=== PATIENT | male | born 2000 | race Caucasian/White ===

== ENCOUNTER → 2020-10-11 | Outpatient (CLI) | payer SELFPAY ==
--- NOTE | 2020-10-11 16:25 | Diagnostic Imaging Report ---
INDICATION: Left foot pain. FINDINGS: Three views of the left foot show no fracture, dislocation, or other acute abnormalities. IMPRESSION: Negative left foot. Dictated by: Dictated on workstation # [id number]
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
== END ==
LOC: RAD FS 10:37
PROVIDERS: ATTEND Nurse Practitioner
DX: S92.152A Displaced avulsion fracture (chip fracture) of left talus, initial encounter for closed fracture (principal); X58.XXXA Exposure to other specified factors, initial encounter
CPT/HCPCS: 73610; 73630

== ENCOUNTER 2021-08-24 08:02 | Emergency (ER) | payer BC, OTHER ==
[2021-08-24] MEDS ORDERED: NS IV 1000 ML 1,000 ML IV STA (08:22)
[2021-08-24] MEDS ORDERED: KETOROLAC 30 MG/ML VIAL IVP STA (08:22)
--- NOTE | 2021-08-24 08:27 | ED General ---
General Stated Complaint: RT FLANK/LRQ PAIN Source of Information: Patient History of Present Illness Date Seen by Provider: Aug 24, 2021 Time Seen by Provider: 08:06 Initial Comments 20-year-old male presenting with right flank pain. He states yesterday evening he was having pain in his back around his kidney. He felt that the pain wraps around to his right lower quadrant this morning. He has had more severe pain overnight. He has had no significant improvement by taking acetaminophen and ibuprofen. He has increased pain with movement and palpation. He denies any nausea or vomiting. He denies any fever or chills. He has had no prior abdominal surgeries. He denies having pain like this in the past. He has had darker color to his urine. He denies any pain or burning with urination. He denies any history of kidney stones. Timing/Duration: 12-24 Hours Severity: Severe Modifying Factors: worse with Movement (and palpation) Associated Systoms: No Chest Pain, No Cough, No Diaphoresis, No Fever/Chills, No Headaches, No Loss of Appetite, No Malaise, No Nausea/Vomiting, No Rash, No Seizure, No Shortness of Air, No Syncope, No Weakness Allergies and Home Medications Allergies Coded Allergies: No Known Drug Allergies (Unverified , 08/24/21) Patient Home Medication List Home Medication List Reviewed: Yes Review of Systems Review of Systems Constitutional: No chills, No fever EENTM: no symptoms reported Respiratory: no symptoms reported Cardiovascular: no symptoms reported Gastrointestinal: see HPI Genitourinary: see HPI; No dysuria; other (darker color) Musculoskeletal: see HPI Skin: no symptoms reported Psychiatric/Neurological: No Symptoms Reported Past Ppxgimp-Wnzogr-Fefhuo Hx Past Medical History Surgery/Hospitalization HX: GERD, Kidney stones Surgeries: No Genitourinary: Yes Kidney Stones Gastrointestinal: Yes Gastroesophageal Reflux Physical Exam Vital Signs Vital Signs - First Documented 08/24/21 08:44 Pulse 83 Resp 20 B/P (MAP) 134/81 (98) Pulse Ox 98 O2 Delivery Room Air Capillary Refill : Height, Weight, BMI Height: '" Weight: lbs. oz. kg; BMI Method: General Appearance: No Apparent Distress, WD/WN HEENT: PERRL/EOMI, Pharynx Normal Neck: Full Range of Motion, Normal Inspection, Non Tender, Supple Respiratory: Chest Non Tender, Lungs Clear, Normal Breath Sounds, No Accessory Muscle Use, No Respiratory Distress Cardiovascular: Regular Rate, Rhythm, Normal Peripheral Pulses Gastrointestinal: Normal Bowel Sounds, No Pulsatile Mass, Soft; No Distended, No Guarding, No Rebound; Tenderness (right flank wrapping around to RLQ) Rectal: Deferred Back: CVA Tenderness (R) Extremity: Normal Capillary Refill, Normal Inspection, No Pedal Edema Neurologic/Psychiatric: Alert, Oriented x3, cytology manager II-XII Norm as Tested Skin: Normal Color, Warm/Dry Progress/Results/Core Measures Suspected Sepsis SIRS Temperature: Pulse: Respiratory Rate: Laboratory Tests 08/24/21 08:28: White Blood Count 5.3 Blood Pressure / Mean: Laboratory Tests 08/24/21 08:28: Creatinine 1.06, Platelet Count 242, Total Bilirubin 0.6 Results/Orders Lab Results Laboratory Tests Test 08/24/21 08:07 08/24/21 08:28 Range/Units Urine Color YELLOW Urine Clarity SL CLOUDY Urine pH 6.0 5-9 Urine Specific Idamay >=1.030 1.016-1.022 Urine Protein 1+ H NEGATIVE Urine Glucose (UA) NEGATIVE NEGATIVE Urine Ketones TRACE H NEGATIVE Urine Nitrite NEGATIVE NEGATIVE Urine Bilirubin 2+ H NEGATIVE Urine Urobilinogen 0.2 < = 1.0 MG/DL Urine Leukocyte Esterase NEGATIVE NEGATIVE Urine RBC (Auto) 3+ H NEGATIVE Urine RBC 0-2 /HPF Urine WBC 0-2 /HPF Urine Squamous Epithelial Cells NONE /HPF Urine Crystals NONE /LPF Urine Bacteria TRACE /HPF Urine Casts NONE /LPF Urine Mucus MODERATE H /LPF Urine Culture Indicated NO White Blood Count 5.3 4.3-11.0 10^3/uL Red Blood Count 5.41 4.30-5.52 10^6/uL Hemoglobin 16.9 13.3-17.7 g/dL Hematocrit 48 40-54 % Mean Corpuscular Volume 90 80-99 fL Mean Corpuscular Hemoglobin 31 25-34 pg Mean Corpuscular Hemoglobin Concent 35 32-36 g/dL Red Cell Distribution Width 12.0 10.0-14.5 % Platelet Count 242 130-400 10^3/uL Mean Platelet Volume 9.8 9.0-12.2 fL Immature Granulocyte % (Auto) 0 % Neutrophils (%) (Auto) 60 42-75 % Lymphocytes (%) (Auto) 28 12-44 % Monocytes (%) (Auto) 9 0-12 % Eosinophils (%) (Auto) 2 0-10 % Basophils (%) (Auto) 1 0-10 % Neutrophils # (Auto) 3.2 1.8-7.8 10^3/uL Lymphocytes # (Auto) 1.5 1.0-4.0 10^3/uL Monocytes # (Auto) 0.5 0.0-1.0 10^3/uL Eosinophils # (Auto) 0.1 0.0-0.3 10^3/uL Basophils # (Auto) 0.0 0.0-0.1 10^3/uL Immature Granulocyte # (Auto) 0.0 0.0-0.1 10^3/uL Sodium Level 139 135-145 MMOL/L Potassium Level 4.4 3.6-5.0 MMOL/L Chloride Level 105 98-107 MMOL/L Carbon Dioxide Level 24 21-32 MMOL/L Anion Gap 10 5-14 MMOL/L Blood Urea Nitrogen 18 7-18 MG/DL Creatinine 1.06 0.60-1.30 MG/DL Estimat Glomerular Filtration Rate 102 BUN/Creatinine Ratio 17 Glucose Level 108 H 70-105 MG/DL Calcium Level 9.9 8.5-10.1 MG/DL Corrected Calcium 8.5-10.1 MG/DL Total Bilirubin 0.6 0.1-1.0 MG/DL Aspartate Amino Transf (AST/SGOT) 25 5-34 U/L Alanine Aminotransferase (ALT/SGPT) 61 H 0-55 U/L Alkaline Phosphatase 96 40-136 U/L Total Protein 7.8 6.4-8.2 GM/DL Albumin 5.0 H 3.2-4.5 GM/DL Lipase 48 8-78 U/L My Orders Orders - LUIS FERNANDO GALVEZ MD Comprehensive Metabolic Panel (08/24/21 08:09) Lipase (08/24/21 08:09) Ua Culture If Indicated (08/24/21 08:09) Ed Iv/Invasive Line Start (08/24/21 08:09) Cbc With Automated Diff (08/24/21 08:09) Ns Iv 1000 Ml (Sodium Chloride 0.9%) (08/24/21 08:22) Ketorolac Injection (Toradol Injection) (3/2/22 08:22) Ct Abd/Pelvis Wo(Kidney Stone) (08/24/21 08:22) Strain Urine (08/24/21 10:26) Vital Signs/I&O 08/24/21 08/24/21 08:44 10:33 Pulse 83 70 Resp 20 18 B/P (MAP) 134/81 (98) 122/64 Pulse Ox 98 98 O2 Delivery Room Air Room Air Capillary Refill : Progress Note #1: Progress Note Obtain urinalysis as well as basic labs and a CT scan to evaluate for possible kidney stone versus diverticulitis versus colitis versus pyelonephritis vs appendicitis. Give Toradol 30 mg IV for pain, NS 1 L IV for hydration. Progress Note #2: Progress Note His labs are stable without acute significant abnormality. His urinalysis does show some blood but no infection. The CT scan came back showing a 1 mm stone at the UVJ for the bladder. Counseled on findings and results. Advised to follow- up through urology if he has continued symptoms or problems. Return if he has more concerns. He states that he did not feel like the pain was bad enough he needed narcotic or medication. Will try [id number] medication. Given information about straining his urine. Diagnostic Imaging Diagonstic Imaging: CT Plain Films/CT/US/NM/MRI: abdomen, pelvis Comments NAME: DONNA DUCKWORTH MED REC#: [id number] PT STATUS: REG ER : 2000 PHYSICIAN: LUIS FERNANDO GALVEZ MD ADMIT DATE: 08/24/21/ER FS Draft Date of Exam:08/24/21 CT ABD/PELVIS WO(KIDNEY STONE) PROCEDURE: CT urinary tract, rule out kidney stone. TECHNIQUE: Multiple contiguous axial images were obtained through the abdomen and pelvis without the use of intravenous contrast. Auto Exposure Controls were utilized during the CT exam to meet ALARA standards for radiation dose reduction. INDICATION: Right-sided pain. I have no priors. Noncontrasted abdominal pelvic CT performed. A punctate 1 mm stone is at the level of the distal right ureter approaching the ureteral orifice and resulting in mild upstream right-sided hydronephrosis. No perinephric or periureteric urinoma, fluid collection or hemorrhage. There are additional nonobstructing intrarenal right stones within mid and lower pole calyces, the largest of those is 2 mm. The unobstructed left kidney was nonfocal, nonacute and without calculus. The appendix is normal. The remaining abdominal pelvic solid and hollow viscera unremarkable with no inflammatory process, obstructive features or other acute findings. IMPRESSION: 1. Tiny 1 mm stone distal right ureter near the UVJ with mild upstream right-sided hydroureteronephrosis with additional nonobstructing intrarenal stones on the right noted. 2. Otherwise negative. Dictated on workstation # [id number] Dict: 08/24/21 0850 Trans: 08/24/21 0858 [facility] [id number] Interpreted by: SINDY GUTIERREZ Electronically signed by: Reviewed: Reviewed by Me Departure Impression Primary Impression: Acute right flank pain Additional Impressions: Renal colic on right side Kidney stone on right side Disposition: HOME, SELF-CARE Condition: Stable Departure-Patient Inst. Decision time for Depature: 09:51 Referrals: NO,LOCAL PHYSICIAN (PCP) Primary Care Physician NORMA RAYMUNDO MD [facility] [phone] to establish care with primary provider Patient Instructions: Flank Pain ED, How to Strain Your Urine, Kidney Stone Diet, Kidney Stone, Adult ED, Opioids for Short-Term Treatment of Pain ED Add. Discharge Instructions: Stay well-hydrated and drink plenty of water. Use Ibuprofen 600 mg every 6 hours as needed for pain. If you have uncontrolled pain, uncontrolled vomiting, fever over 101 F then return or seek medical care for recheck Strain your urine to try and see when your stone passes. Check with Urology if not having any improvement in your pain or if worsening over the next 3-5 days Work/School Note: Work Release Form Date Seen in the Emergency Department: Aug 24, 2021 Return to Work: Aug 24, 2021 Restrictions: No Restrictions LUIS FERNANDO GALVEZ MD Aug 24, 2021 08:27
[2021-08-24 08:36] LABS: BASOPHILS % (AUTO) 1 % (0-10); EOSINOPHILS # (AUTO) 0.1 10^3/uL (0.0-0.3); EOSINOPHILS % (AUTO) 2 % (0-10); HEMATOCRIT 48 % (40-54); HEMOGLOBIN 16.9 g/dL (13.3-17.7); LYMPHOCYTES # (AUTO) 1.5 10^3/uL (1.0-4.0); LYMPHOCYTES % (AUTO) 28 % (12-44); MEAN CORPUSCULAR HEMOGLOBIN 31 pg (25-34); MEAN CORPUSCULAR HGB CONC 35 g/dL (32-36); MEAN CORPUSCULAR VOLUME 90 fL (80-99); MEAN PLATELET VOLUME 9.8 fL (9.0-12.2); MONOCYTES # (AUTO) 0.5 10^3/uL (0.0-1.0); MONOCYTES % (AUTO) 9 % (0-12); NEUTROPHILS # (AUTO) 3.2 10^3/uL (1.8-7.8); NEUTROPHILS % (AUTO) 60 % (42-75); PLATELET COUNT 242 10^3/uL (130-400); WHITE BLOOD COUNT 5.3 10^3/uL (4.3-11.0)
[2021-08-24 08:39] LABS: CLARITY,URINE SL CLOUDY; COLOR,URINE YELLOW; GLUCOSE, URINE (UA) NEGATIVE (NEGATIVE); KETONES,URINE TRACE (NEGATIVE); LEUKOCYTE ESTERASE ,URINE NEGATIVE (NEGATIVE); NITRITE,URINE NEGATIVE (NEGATIVE); PROTEIN,URINE 1+ (NEGATIVE)
--- NOTE | 2021-08-24 08:58 | Diagnostic Imaging Report ---
PROCEDURE: CT urinary tract, rule out kidney stone. TECHNIQUE: Multiple contiguous axial images were obtained through the abdomen and pelvis without the use of intravenous contrast. Auto Exposure Controls were utilized during the CT exam to meet ALARA standards for radiation dose reduction. INDICATION: Right-sided pain. I have no priors. Noncontrasted abdominal pelvic CT performed. A punctate 1 mm stone is at the level of the distal right ureter approaching the ureteral orifice and resulting in mild upstream right-sided hydronephrosis. No perinephric or periureteric urinoma, fluid collection or hemorrhage. There are additional nonobstructing intrarenal right stones within mid and lower pole calyces, the largest of those is 2 mm. The unobstructed left kidney was nonfocal, nonacute and without calculus. The appendix is normal. The remaining abdominal pelvic solid and hollow viscera unremarkable with no inflammatory process, obstructive features or other acute findings. IMPRESSION: 1. Tiny 1 mm stone distal right ureter near the UVJ with mild upstream right-sided hydroureteronephrosis with additional nonobstructing intrarenal stones on the right noted. 2. Otherwise negative. Dictated by: Dictated on workstation # [id number]
[2021-08-24 09:04] LABS: BACTERIA,URINE TRACE /HPF; BILIRUBIN,URINE 2+ (NEGATIVE); RBC,URINE 0-2 /HPF; WBC,URINE 0-2 /HPF
[2021-08-24 09:06] LABS: ALANINE AMINOTRANSFERASE 61 U/L (0-55); ALKALINE PHOSPHATASE 96 U/L (40-136); BILIRUBIN,TOTAL 0.6 MG/DL (0.1-1.0); BUN/CREATININE RATIO 17; CALCIUM 9.9 MG/DL (8.5-10.1); CARBON DIOXIDE 24 MMOL/L (21-32); CHLORIDE 105 MMOL/L (98-107); CREATININE SERUM 1.06 MG/DL (0.60-1.30); GFR ESTIMATED 102; GLUCOSE 108 MG/DL (70-105); POTASSIUM 4.4 MMOL/L (3.6-5.0); SODIUM 139 MMOL/L (135-145)
[2021-08-24 09:07] LABS: LIPASE 48 U/L (8-78); TOTAL PROTEIN 7.8 GM/DL (6.4-8.2)
[2021-08-24 10:33] VITALS: BP 122/64
== END 2021-08-24 10:30 | disposition home or self-care (01) ==
LOC: EDUNIT# 08:02 → ER FS 08:03
DX: N13.2 Hydronephrosis with renal and ureteral calculous obstruction (principal)
CPT/HCPCS: 36415; 74176; 80053; 81000; 83690; 85025

== ENCOUNTER 2021-08-31 17:29 | Emergency (ER) | payer OTHER, BC ==
[~2021-08-31] VITALS: Ht 177.8 cm; Wt 79.2 kg
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
[2021-08-31 17:53] LABS: ABG BASE EXCESS 1.7 MMOL/L (-2.5-2.5); ABG OXYGEN SATURATION 98 % (94-100); ABG PCO2 38 MMHG (35-45); ABG PH 7.44 (7.37-7.43); ABG PO2 106 MMHG (79-93)
[2021-08-31 17:55] LABS: ALLENS TEST OK; INSPIRED O2 ROOM AIR
[2021-08-31 17:56] LABS: PATIENT TEMP 36.1 C; VENTILATOR NO
[2021-08-31 17:59] LABS: BASOPHILS # (AUTO) 0.1 10^3/uL (0.0-0.1); BASOPHILS % (AUTO) 0 % (0-10); EOSINOPHILS # (AUTO) 0.1 10^3/uL (0.0-0.3); EOSINOPHILS % (AUTO) 0 % (0-10); HEMATOCRIT 43 % (40-54); HEMOGLOBIN 15.5 g/dL (13.3-17.7); LYMPHOCYTES # (AUTO) 1.5 10^3/uL (1.0-4.0); LYMPHOCYTES % (AUTO) 9 % (12-44); MEAN CORPUSCULAR HEMOGLOBIN 32 pg (25-34); MEAN CORPUSCULAR HGB CONC 36 g/dL (32-36); MEAN CORPUSCULAR VOLUME 87 fL (80-99); MEAN PLATELET VOLUME 10.1 fL (9.0-12.2); MONOCYTES # (AUTO) 1.1 10^3/uL (0.0-1.0); MONOCYTES % (AUTO) 6 % (0-12); NEUTROPHILS % (AUTO) 84 % (42-75); PLATELET COUNT 258 10^3/uL (130-400); WHITE BLOOD COUNT 17.8 10^3/uL (4.3-11.0)
[2021-08-31 18:22] LABS: BAND NEUTROPHILS 10 %; BASOPHILS % (MANUAL) 0 %; EOSINOPHILS % (MANUAL) 0 %; LYMPHOCYTES % (MANUAL) 4 %; MONOCYTES % (MANUAL) 7 %; NEUTROPHILS % (MANUAL) 79 %
[2021-08-31] MEDS ORDERED: RT-ALBUTEROL HFA 8.5 GM INHALER IH STA (19:30)
[2021-08-31 20:41] VITALS: BP 138/102
== END 2021-08-31 20:33 | disposition home or self-care (01) ==
LOC: EDUNIT# 17:29 → ER FS 17:30
DX: T58.91XA Toxic effect of carbon monoxide from unspecified source, accidental (unintentional), initial encounter (principal); F17.210 Nicotine dependence, cigarettes, uncomplicated
CPT/HCPCS: 36415; 82375; 82805; 85007; 85027